=== PATIENT | male | born 1945 | race Caucasian/White ===

== ENCOUNTER 2016-09-29 12:31 | Inpatient (IN) | payer OTHER ==
--- NOTE | 2016-09-29 14:27 | EDPHY ---
H & P Time Seen by Provider: 09/29/16 14:09 HPI/ROS: CHIEF COMPLAINT: Left LE cellulitis HISTORY OF PRESENT ILLNESS: The patient is a 77-year-old male who presents to the emergency department with left lower extremity cellulitis. The patient initially noticed a small "pimple" on his left calf approximately 7 days ago. He tried to pop this pustule. Then developed significant redness. It is slowly macerated and created a central clearing. This is been draining of mild blood and pus. He has moderate discomfort. The redness is now moving up his calf. He denies fevers or chills. No nausea or vomiting. He went to urgent care was sent to the emergency department. REVIEW OF SYSTEMS: My complete review of systems is negative except as mentioned in the HPI. Past Medical/Surgical History: Denies Past surgical history: Orthopedic Social history: The patient does not smoke or use alcohol. Smoking Status: Never smoked Physical Exam: Vitals noted GENERAL: Well-appearing, in no acute distress, alert. HEENT: Eyes normal to inspection, normal pharynx, no signs of dehydration. NECK: No thyromegaly, no lymphadenopathy, supple. RESPIRATORY: Clear to auscultation bilaterally, no rales, rhonchi or wheezing. CVS: Regular rate and rhythm, no rubs, murmurs, or gallops. ABDOMEN: Soft, nontender, nondistended, no organomegaly. BACK: Normal to inspection, no CVA tenderness. SKIN: Normal color, no rash, warm, dry. No pallor. EXTREMITIES: No pedal edema, no joint swelling. The patient has significant erythema on the left calf. This extends the entire length of the calf. He also has mild swelling of his left foot. There is a centralized necrotic area that is 3 inches in diameter. There is no palpable fluctuance. The skin is fairly tender to palpation. Neurovascular intact distally NEURO/PSYCH: Alert and oriented x3, normal mood and affect, normal motor sensory exam. No obvious cranial nerve deficit. Constitutional: Initial Vital Signs Temperature (C) 36.4 C 09/29/16 12:51 Heart Rate 85 09/29/16 12:51 Respiratory Rate 16 09/29/16 12:51 Blood Pressure 134/85 H 09/29/16 12:51 O2 Sat (%) 97 09/29/16 12:51 O2 Delivery Mode Room Air Allergies/Adverse Reactions: phenytoin [From Dilantin] Allergy (Verified 09/29/16 12:56) Sulfa (Sulfonamide Antibiotics) Allergy (Verified 09/29/16 12:56) Medical Decision Making ED Course/Re-evaluation: In the emergency department I discussed possible etiologies with the patient. I answered all his questions. Bedside ultrasound performed. Procedure: Bedside ultrasound of the left lower extremity Indication: Cellulitis of the left lower extremity I performed a bedside ultrasound on the patient's lower extremity due to significant cellulitis and centralized macerated lesion. There is no visible large fluid collection. No visible FB. An IV was placed. Patient received vancomycin 1 g IV and Rocephin 1 g IV. I discussed case Dr. singh who will admit the patient. I also consulted Dr. Norton from General surgery. He will come and evaluate the wound. I discussed the plan with the patient. Answered all his questions. 15 10: Dr. Norton was in the emergency department evaluated the patient. Patient was stable during his stay. Differential Diagnosis: My differential includes but is not limited to cellulitis, abscess, bacteremia, sepsis, insect bite, spider bite - Data Points Medications Given: Discontinued Medications Ceftriaxone Sodium/Dextrose (Rocephin 1 Gm (Premix)) 50 mls @ 100 mls/hr IV EDNOW ONE PRN Reason: Protocol Stop: 09/29/16 15:14 Last Admin: 09/29/16 15:15 Dose: 50 mls Departure - Departure Disposition: [facility] Inpatient Acute Clinical Impression: Cellulitis Qualifiers: Site of cellulitis: extremity Site of cellulitis of extremity: lower extremity Laterality: left Qualified Code(s): L03.116 - Cellulitis of left lower limb Condition: Good
[2016-09-29] MEDS ORDERED: VANCOMYCIN HCL/NORMAL SALINE 250 ML IV ONE (14:45)
[2016-09-29 14:55] LABS: % IMMATURE GRANULYOCYTES 0.5 % (0.0-1.1); ABSOLUTE IMMATURE GRANULOCYTES 0.06 10^3/uL (0.00-0.10); ADD DIFF? NO; ADD MORPH? NO; ADD SCAN? NO; ATYPICAL LYMPHOCYTE FLAG 10 (0-99); FRAGMENT RBC FLAG 0 (0-99); HEMATOCRIT 48.5 % (40.0-51.0); LEFT SHIFT FLG 10 (0-99); LIPEMIA HEMOLYSIS FLAG 90 (0-99); MEAN CELL HEMOGLOBIN 32.1 pg (27.9-34.1); MEAN CELL HEMOGLOBIN CONCENTR. 35.1 g/dL (32.4-36.7); MEAN CELL VOLUME 91.7 fL (81.5-99.8); MEAN PLATELET VOLUME 9.2 fL (8.7-11.7); PLATELET CLUMPS FLAG 0 (0-99); PLATELET COUNT 234 10^3/uL (150-400); RED BLOOD CELL COUNT 5.29 10^6/uL (4.40-6.38); RED CELL DISTRIBUTION WIDTH 12.3 % (11.5-15.2)
[2016-09-29 15:14] LABS: ANION GAP 18 mEq/L (8-16); CALCIUM 9.6 mg/dL (8.5-10.4); CARBON DIOXIDE 20 mEq/l (22-31); CHLORIDE 102 mEq/L (97-110); GLOMERULAR FILTRATION RATE > 60; GLUCOSE 90 mg/dL (70-100); POTASSIUM 4.2 mEq/L (3.5-5.2); SODIUM 140 mEq/L (134-144)
[2016-09-29] MEDS ORDERED: ONDANSETRON DISINTEGRATING 4 MG TAB PO PRN (16:02)
[2016-09-29] MEDS ORDERED: ACETAMINOPHEN 325 MG TAB PO PRN (16:02)
[2016-09-29] MEDS ORDERED: ONDANSETRON 4 MG/2 ML VIAL IVP PRN (16:02)
[2016-09-29] MEDS ORDERED: oxyCODONE IR 5 MG TAB PO PRN (16:02)
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
[2016-09-29] MEDS: VANCOMYCIN HCL/NORMAL SALINE 250 ML IV SCH ×2 (16:26→16:27)
--- NOTE | 2016-09-29 16:37 | GHP ---
[f rep st] HISTORY AND PHYSICAL DATE OF ADMISSION: 09/29/2016 CHIEF COMPLAINT: Leg pain. HISTORY OF PRESENT ILLNESS: This is a 71-year-old man with no past medical history who presents wit h a swollen left leg. About a week ago, he noticed a "pimple" on his left calf. He picked at it. Since then, an area of redness has been very slowly growing. He presents today because the area is now taking up most of his calf, and he has a swollen left foot. He has had a borderline fever, whic h started last night. He has no history of severe infections and no history of resistant bacteria i n the past. PAST MEDICAL HISTORY: No past medical history. PAST SURGICAL HISTORY: He has had orthopedic surgery in the past. MEDICATIONS: None. ALLERGIES: Phenytoin and sulfa. FAMILY HISTORY: He is adopted. SOCIAL HISTORY: He does drink alcohol. He does not smoke. He is retired. Last job was about 8 ye ars ago. 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 REVIEW OF SYSTEMS: 10-point review of systems was conducted and is negative except per HPI. PHYSICAL EXAM: VITAL SIGNS: Blood pressure 143/91, heart rate 66, respiratory rate 18, satting 97% on room air, temperature 36.4. GENERAL: The patient is a pleasant man who appears comfortable, in no acute distress. HEENT: Normocephalic, atraumatic. CARDIOVASCULAR: Regular rate and rhythm. No murmurs, rubs, or gallops. PULMONARY: Lungs clear to auscultation bilaterally. ABDOMEN: Soft, nontender, nondistended. SKIN: No rash. : No Mott. NEUROLOGIC: Exam shows him to be alert and oriented x3. He is moving all extremities. PSYCHIATRIC: Normal mood and affect. EXTREMITIES: Exam shows his left lower extremity to have erythema which extends from just below his knee to jus t above his ankle. He has an area of induration, approximately 4-5 cm across the area of erythema. It is warm, slightly tender to palpation. His left foot is swollen. He has no inguinal lymphadeno sourav. He does have sensation and motor intact in his left foot. LABORATORY DATA: Bicarb is 20. White blood cell count is 12,000 with 76% neutrophils. There are n o bands reported. DATA: I discussed this with Dr. Caal as well as Dr. Norton. We will admit to med/surg for IV an tibiotics. IMPRESSION AND PLAN: A 71-year-old man with left lower extremity cellulitis. 1. Cellulitis: Quite extensive. Not associated with sepsis. Agree I do not think there is any ro le for surgical debridement at this time, although there is a large area of induration which we will have to watch. Agree with covering for gram-positives. At this point, I will start him on vancomy khoa. Cultures of the top of the wound as well as blood have been sent. We are not sure how reliabl e wound cultures will be. He will get empirically covered with vancomycin for now. Dr. Norton will follow along peripherally. This is a high-risk diagnosis requiring inpatient IV antibiotics. 2. Leukocytosis: Due to the above. We will follow tomorrow. 3. Anion gap acidosis: Likely due to elevated BUN. We will recheck a basic metabolic panel again tomorrow. 4. VTE risk: He is moderate to high given the significance of his swelling. I have started him on low-dose Lovenox. /[id number]/MODL
[2016-09-29] MEDS: BEER 1 EACH EA PO SCH (18:49)
--- NOTE | 2016-09-29 22:49 | SOAPPROG ---
SOAP Progress Note Assessment/Plan: 09/29/16 22:45 Assessment: erythema has retreated by > 2-3 cm from line drawn this afternoon. Edema decreased Improved!! Plan: antibiotics elevation compressive dressing Pushing SATs to 98% Subjective: I feel better Objective: Vital Signs Temp Pulse Resp BP Pulse Ox 36.7 C 69 18 129/73 H 97 09/29/16 19:20 09/29/16 19:20 09/29/16 19:20 09/29/16 19:20 09/29/16 19:20 Microbiology 09/29/16 15:10 Gram Stain - Final Leg - Anaerobic Tube/Swab Laboratory Results 09/29/16 14:35 09/29/16 14:35 09/28/16 09/29/16 09/30/16 05:59 05:59 05:59 Intake Total 950 Balance 950 - Time Spent With Patient Time Spent With Patient: 15 minutes Physical Exam - Physical Exam General Appearance: alert, no apparent distress Skin: other (Erythema around wound has retreated 2-3 cm. Edema decreased) ICD10 Worksheet Patient Problems: Problems Problem Status Onset Cellulitis Acute
[2016-09-30] MEDS: VANCOMYCIN HCL/NORMAL SALINE 250 ML IV SCH ×2 (04:18→15:39)
[2016-09-30 04:48] LABS: % IMMATURE GRANULYOCYTES 0.2 % (0.0-1.1); ABSOLUTE IMMATURE GRANULOCYTES 0.02 10^3/uL (0.00-0.10); ADD DIFF? NO; ADD MORPH? NO; ADD SCAN? NO; ATYPICAL LYMPHOCYTE FLAG 20 (0-99); FRAGMENT RBC FLAG 0 (0-99); HEMATOCRIT 42.7 % (40.0-51.0); LEFT SHIFT FLG 10 (0-99); LIPEMIA HEMOLYSIS FLAG 90 (0-99); MEAN CELL HEMOGLOBIN 32.1 pg (27.9-34.1); MEAN CELL HEMOGLOBIN CONCENTR. 35.1 g/dL (32.4-36.7); MEAN CELL VOLUME 91.4 fL (81.5-99.8); MEAN PLATELET VOLUME 8.9 fL (8.7-11.7); PLATELET CLUMPS FLAG 0 (0-99); PLATELET COUNT 206 10^3/uL (150-400); RED BLOOD CELL COUNT 4.67 10^6/uL (4.40-6.38); RED CELL DISTRIBUTION WIDTH 12.2 % (11.5-15.2)
[2016-09-30 04:55] LABS: ANION GAP 12 mEq/L (8-16); CALCIUM 9.1 mg/dL (8.5-10.4); CARBON DIOXIDE 21 mEq/l (22-31); CHLORIDE 108 mEq/L (97-110); CREATININE 0.9 mg/dL (0.7-1.3); GLOMERULAR FILTRATION RATE > 60; GLUCOSE 96 mg/dL (70-100); POTASSIUM 4.8 mEq/L (3.5-5.2); SODIUM 141 mEq/L (134-144)
[2016-09-30] MEDS: ENOXAPARIN 40 MG/0.4 ML SYR SC SCH (08:07)
--- NOTE | 2016-09-30 09:06 | SOAPPROG ---
SOAP Progress Note Assessment/Plan: 09/29/16 22:45 Assessment: erythema has retreated by > 2-3 cm from line drawn this afternoon. Edema decreased Improved!! Plan: antibiotics elevation compressive dressing Pushing SATs to 98% 09/30/16 08:55 Assessment: Continues to improve. Erythema continues to retreat ( edge re-marked ). Edema less. WBC improved C&S still pending - gram pos cocci in pairs. Plan: Continue same. Surgical intervention probably will not be needed. Recommend antibiotics based on sensitivities and close outpatient follow up Suggest continued elevation of leg and local heat until edema and erythema resolves. Will sign off. Please reconsult if needed. Subjective: " I feel great and really want to go to the [employer] [facility] Objective: Vital Signs Temp Pulse Resp BP Pulse Ox 36.6 C 70 16 130/69 H 95 09/30/16 08:36 09/30/16 08:36 09/30/16 08:36 09/30/16 08:36 09/30/16 08:36 Laboratory Results 09/30/16 04:28 09/30/16 04:28 09/29/16 09/30/16 10/01/16 05:59 05:59 05:59 Intake Total 600 Balance 600 - Time Spent With Patient Time Spent With Patient: 15 minutes Physical Exam - Physical Exam General Appearance: WD/WN, alert, no apparent distress Skin: other (Area of erythema on left lower medial leg continues to resolve. edge remarked. Edema markedly decreased.) Neuro/Psych: alert, normal mood/affect, oriented x 3 ICD10 Worksheet Patient Problems: Problems Problem Status Onset Cellulitis Acute
--- NOTE | 2016-09-30 11:05 | HOSPPROG ---
Hospitalist Progress Note Assessment/Plan: # LLE cellulitis - does not appear surgical - GS with GPC clusters - follow wound cx - cont vanc pending sensitivity - elevate leg # ppx - lovenox Subjective: swelling down today; no diarrhea Objective: Vital Signs Temp Pulse Resp BP Pulse Ox 36.6 C 70 16 130/69 H 95 09/30/16 08:36 09/30/16 08:36 09/30/16 08:36 09/30/16 08:36 09/30/16 08:36 Laboratory Results 09/30/16 04:28 09/30/16 04:28 09/29/16 09/30/16 10/01/16 05:59 05:59 05:59 Intake Total 600 Balance 600 - Physical Exam Constitutional: no apparent distress, appears nourished Cardiovascular: regular rate and rhythym, no murmur, rub, or gallop Respiratory: no respiratory distress, no rales or rhonchi, clear to auscultation Gastrointestinal: normoactive bowel sounds, soft, non-tender abdomen, no palpable masses Musculoskeletal: other (L leg with decreaing erythema/edema) ICD10 Worksheet Patient Problems: Problems Problem Status Onset Cellulitis Acute
[2016-09-30] MEDS: BEER 1 EACH EA PO SCH (17:41)
[2016-10-01] MEDS: VANCOMYCIN HCL/NORMAL SALINE 250 ML IV SCH ×2 (04:21→16:21)
[2016-10-01 04:50] LABS: ANION GAP 13 mEq/L (8-16); CARBON DIOXIDE 21 mEq/l (22-31); CHLORIDE 107 mEq/L (97-110); GLUCOSE 97 mg/dL (70-100); POTASSIUM 5.2 mEq/L (3.5-5.2); SODIUM 141 mEq/L (134-144)
[2016-10-01 04:51] LABS: CALCIUM 9.3 mg/dL (8.5-10.4); GLOMERULAR FILTRATION RATE > 60
--- NOTE | 2016-10-01 08:59 | HOSPPROG ---
Hospitalist Progress Note Assessment/Plan: #MRSA leg cellulitis: redness improved from marked outlines. Still purulence from wound -will cont IV vanc. Appreciate ID consultation #Leukocytosis: resolved with IV abx #Metabolic acidosis: resolved #Diet: regular #DVT: Lovenox #Disp: cont IV abx Subjective: less tender over leg Objective: Vital Signs Temp Pulse Resp BP Pulse Ox 36.7 C 67 16 140/75 H 98 10/01/16 08:38 10/01/16 08:38 10/01/16 08:38 10/01/16 08:38 10/01/16 08:38 Laboratory Results 09/30/16 04:28 10/01/16 03:01 09/30/16 10/01/16 10/02/16 05:59 05:59 05:59 Intake Total 600 1500 Balance 600 1500 - Physical Exam Constitutional: no apparent distress Eyes: PERRL Ears, Nose, Mouth, Throat: moist mucous membranes, hearing normal Cardiovascular: regular rate and rhythym, no murmur, rub, or gallop Respiratory: no respiratory distress, no rales or rhonchi Gastrointestinal: normoactive bowel sounds, soft, non-tender abdomen Genitourinary: no bladder fullness Skin: warm Musculoskeletal: other (left calf. Erythema receded from previously marked outline. 4-5inch wound with mild purulence and surrounding erythema) Neurologic: AAOx3, CN II-XII Intact Psychiatric: interacting appropriately Lymph, Heme, Immunologic: no cervical LAD ICD10 Worksheet Patient Problems: Problems Problem Status Onset Cellulitis Acute MRSA (methicillin resistant Staphylococcus aureus) Acute ~09/29/16
[2016-10-01] MEDS: ENOXAPARIN 40 MG/0.4 ML SYR SC SCH (11:10)
--- NOTE | 2016-10-01 17:55 | GCON ---
[f rep st] CONSULTATION DATE OF CONSULTATION: 10/01/2016 REFERRING PHYSICIAN: Bessie Ni MD REASON FOR CONSULTATION: Left lower extremity cellulitis due to MRSA. HISTORY OF PRESENT ILLNESS: Patient is a 71-year-old male without significant past medical history, whom I am asked to see in consultation for left lower extremity cellulitis associated with MRSA. T he patient describes developing a pimple-like lesion over the left lower calf approximately 10 days ago. He squeezed this and subsequently applied Betadine. He also was using tea tree soap. Subsequ ently, he experienced erythema, edema, and tenderness of the calf. He describes having subjective f ever without chills for a short period. No prior history of MRSA or skin and soft tissue infection. The patient was evaluated in the emergency department and noted to have a carbuncle of the left lo wer extremity, which was cultured and has grown MRSA. The patient has been receiving antibiotic the rapy with vancomycin. He has been elevating his leg and has had superficial debridement of the resi dual ulceration. He did not require formal incision and drainage. He notes the erythema has recede d and his pain is significantly decreased. He has not experienced any pain in his thigh or inguinal region. Given the above findings, I am now asked to assist in his ongoing management. PAST MEDICAL HISTORY: Unremarkable. PAST SURGICAL HISTORY: Orbital fracture and knee surgery. CURRENT MEDICATIONS: Vancomycin 1 g IV q.12 hours, Lovenox 40 mg subcu daily, Oxy IR as needed, 1 b eer daily. ALLERGIES: Dilantin and sulfonamides are listed in his chart, although he related no allergies to m e today. SOCIAL HISTORY: Patient does not smoke. He drinks 5-6 drinks per week. No drug use. No recent tr cheyanne. No pets at home. FAMILY HISTORY: Patient is adopted. REVIEW OF SYSTEMS: Outside of that noted in HPI, remainder of 10-system review is unremarkable. PHYSICAL EXAMINATION: VITAL SIGNS: Temperature 36.7, heart rate 67, respiratory rate 16, blood pre ssure 140/75, oxygen saturation 98% on 3 L. GENERAL: Patient is well nourished, well developed in no acute distress. He appears nontoxic. HEENT: There is no scleral icterus, conjunctival injectio n, or conjunctival petechiae. Oropharynx shows moist mucous membranes with no thrush. Several teet h are missing. There is no nasal discharge. There is no tenderness over the frontal, maxillary or mastoid area. NECK: Supple without lymphadenopathy or palpable thyromegaly. CHEST: Clear to ausc ultation bilaterally without adventitious sounds. Respiratory effort is normal. CARDIOVASCULAR: R egular rate and rhythm without murmurs, gallops, rubs. ABDOMEN: Soft, nontender, nondistended. Th ere is no palpable organomegaly. Bowel sounds are present. MUSCULOSKELETAL: Left lower extremity shows erythema from superior to the medial malleolus to below the knee; there is a central area of u lceration with underlying granulation tissue present. There is mild induration present. Skin is wr inkling suggesting decreasing edema. There is mild warmth and tenderness. LYMPHATICS: No cervical or supraclavicular nodes. No left inguinal adenopathy or lymphangitis. NEUROLOGIC: Patient is al ert and interacts appropriately with examiner. Cranial nerves 2-12 are grossly intact. Muscle tone and bulk are normal. LABORATORY DATA: White blood cell count 9.2, hematocrit 42.7, platelets 206, neutrophils 68%, lymph ocytes 19%. Serum creatinine 1.0. Vancomycin trough 9.5. Blood cultures x2 are no growth. Wound culture showing growth of MRSA. IMPRESSION: Left lower extremity skin and soft tissue infection due to Methicillin-resistant Staphy lococcus aureus. The patient is clinically improved with vancomycin therapy and superficial debride ment of ulceration. He is not ready to transition to oral antibiotic therapy, although this may be achievable in next 24-48 hours. RECOMMENDATIONS: 1. Continue vancomycin (trough appropriate for skin and soft tissue infection). 2. Continue leg elevation. 3. Follow clinical response to above measures. 4. Epidemiology and transmission of Methicillin-resistant Staphylococcus aureus discussed with aretha ent today. Thank you for this consultation. We will continue to follow the patient with you. /[id number]/MODL
[2016-10-01] MEDS: BEER 1 EACH EA PO SCH (18:10)
[2016-10-02] MEDS: VANCOMYCIN HCL/NORMAL SALINE 250 ML IV SCH ×2 (04:25→16:19)
[2016-10-02 06:03] LABS: ANION GAP 9 mEq/L (8-16); CALCIUM 9.3 mg/dL (8.5-10.4); CARBON DIOXIDE 23 mEq/l (22-31); CHLORIDE 106 mEq/L (97-110); CREATININE 0.9 mg/dL (0.7-1.3); GLOMERULAR FILTRATION RATE > 60; GLUCOSE 91 mg/dL (70-100); POTASSIUM 4.6 mEq/L (3.5-5.2); SODIUM 138 mEq/L (134-144)
[2016-10-02 08:19] VITALS: RESP 18
[2016-10-02] MEDS: ENOXAPARIN 40 MG/0.4 ML SYR SC SCH (10:05)
--- NOTE | 2016-10-02 13:46 | PCMIDPN ---
Assessment/Plan: Assessment/Plan: * Left lower extremity cellulitis due to MRSA: Exam with more fluctuant quality underlying ulceration and some bloody and purulent material expressed in small amount. Will repeat ultrasound to assess for development of fluid collection with aspiration if present. Depending on findings, could require that this area be incised and drained. Continue vancomycin and leg elevation. 10/02/16 13:42 Subjective: Overall feels better with focal area pain over left lower extremity wound. Objective: Vital Signs Temp Pulse Resp BP Pulse Ox 36.5 C 63 18 133/78 H 94 10/02/16 08:19 10/02/16 08:19 10/02/16 08:19 10/02/16 08:19 10/02/16 08:19 Laboratory Results 09/30/16 04:28 10/02/16 05:12 10/01/16 10/02/16 10/03/16 05:59 05:59 05:59 Intake Total 1500 480 Balance 1500 480 Vancomycin # 4 Blood cultures no growth - Physical Exam General Appearance: alert, no apparent distress Extremities: inflammation (Erythema markedly reduced; fluctuant quality to ulceration bed with some seropurulent and purulent material expressed in small quantity; tenderness primarily over this region) Lymphatic: other (No lymphangitis left lower extremity) ICD10 Worksheet Patient Problems: Problems Problem Status Onset Cellulitis Acute MRSA (methicillin resistant Staphylococcus aureus) Acute ~09/29/16
--- NOTE | 2016-10-02 14:43 | HOSPPROG ---
Hospitalist Progress Note Assessment/Plan: #MRSA leg cellulitis: not much improvement of wound and surrounding erythema. CT leg today per discussion with Dr. Artis and Dr. Norton. -cont IV vanc, elevate #Leukocytosis: resolved with IV abx #Metabolic acidosis: resolved #Diet: regular #DVT: Lovenox #Disp: cont IV abx Subjective: minimal pain over left lower leg and wound site Objective: Vital Signs Temp Pulse Resp BP Pulse Ox 36.5 C 63 18 133/78 H 94 10/02/16 08:19 10/02/16 08:19 10/02/16 08:19 10/02/16 08:19 10/02/16 08:19 Laboratory Results 09/30/16 04:28 10/02/16 05:12 10/01/16 10/02/16 10/03/16 05:59 05:59 05:59 Intake Total 1500 480 Balance 1500 480 - Physical Exam Constitutional: no apparent distress Eyes: PERRL Ears, Nose, Mouth, Throat: moist mucous membranes, hearing normal Cardiovascular: regular rate and rhythym, no murmur, rub, or gallop Respiratory: no respiratory distress Gastrointestinal: normoactive bowel sounds Genitourinary: no bladder fullness Musculoskeletal: other (left calf wound unchanged. Still purulence with surrounding erythema, mild fluctuance and TTP) Neurologic: AAOx3 Psychiatric: interacting appropriately Lymph, Heme, Immunologic: no cervical LAD ICD10 Worksheet Patient Problems: Problems Problem Status Onset Cellulitis Acute MRSA (methicillin resistant Staphylococcus aureus) Acute ~09/29/16
[2016-10-02] MEDS ORDERED: IOPAMIDOL (ISOVUE-300) 100 ML BTL ONE (14:44)
[2016-10-02] MEDS: BEER 1 EACH EA PO SCH (17:52)
[2016-10-03] MEDS: VANCOMYCIN HCL/NORMAL SALINE 250 ML IV SCH (03:05)
[2016-10-03 06:00] LABS: ANION GAP 11 mEq/L (8-16); CALCIUM 9.5 mg/dL (8.5-10.4); CARBON DIOXIDE 20 mEq/l (22-31); CHLORIDE 110 mEq/L (97-110); CREATININE 1.1 mg/dL (0.7-1.3); GLOMERULAR FILTRATION RATE > 60; GLUCOSE 90 mg/dL (70-100); POTASSIUM 5.2 mEq/L (3.5-5.2); SODIUM 141 mEq/L (134-144)
[2016-10-03 07:54] VITALS: BP 128/79; PULSE 55; TEMP 97.5; O2SAT 94
[2016-10-03] MEDS: ENOXAPARIN 40 MG/0.4 ML SYR SC SCH (09:45)
--- NOTE | 2016-10-03 11:01 | PCMIDPN ---
Assessment/Plan: Assessment/Plan: * Left lower extremity cellulitis due to MRSA: Marked improvement today. No drainable focus on CT. Plan to complete therapy with doxycycline 100 mg po bid X 7 days. Follow-up with me next week 10/06/16 at 1 pm. 10/02/16 13:42 10/03/16 10:57 Subjective: Feels much better after manipulation of ulcer bed yesterday. Objective: Vital Signs Temp Pulse Resp BP Pulse Ox 36.4 C 55 L 18 128/79 H 94 10/03/16 07:53 10/03/16 07:53 10/03/16 07:53 10/03/16 07:53 10/03/16 07:53 Laboratory Results 09/30/16 04:28 10/03/16 05:34 10/02/16 10/03/16 10/04/16 05:59 05:59 05:59 Intake Total 480 1950 Balance 480 1950 Vancomycin #5 CT lower extremity without drainable focus - Physical Exam General Appearance: alert, no apparent distress EENT: No scleral icterus Extremities: inflammation (marked decrease in edema, erythema and tenderness; ulcer bed without purulent drainage; small amount of bloody drainage) ICD10 Worksheet Patient Problems: Problems Problem Status Onset Cellulitis Acute MRSA (methicillin resistant Staphylococcus aureus) Acute ~09/29/16
--- NOTE | 2016-10-03 11:51 | HOSPPROG ---
Hospitalist Progress Note Assessment/Plan: #MRSA leg cellulitis: not much improvement of wound and surrounding erythema. CT leg today per discussion with Dr. Artis and Dr. Norton. -cont IV vanc, elevate #Leukocytosis: resolved with IV abx #Metabolic acidosis: resolved #Diet: regular #DVT: Lovenox #Disp: DC on oral abx. FU Dr. Artis Wed Subjective: no acute events Objective: Vital Signs Temp Pulse Resp BP Pulse Ox 36.4 C 55 L 18 128/79 H 94 10/03/16 07:53 10/03/16 07:53 10/03/16 07:53 10/03/16 07:53 10/03/16 07:53 Laboratory Results 09/30/16 04:28 10/03/16 05:34 10/02/16 10/03/16 10/04/16 05:59 05:59 05:59 Intake Total 480 1950 Balance 480 1950 - Physical Exam Constitutional: no apparent distress Eyes: PERRL Ears, Nose, Mouth, Throat: moist mucous membranes Cardiovascular: regular rate and rhythym Respiratory: no respiratory distress Gastrointestinal: normoactive bowel sounds Genitourinary: no bladder fullness Skin: warm Musculoskeletal: other (leg wound with improved cellulitis. No purulence) Neurologic: AAOx3 Psychiatric: interacting appropriately ICD10 Worksheet Patient Problems: Problems Problem Status Onset Cellulitis Acute MRSA (methicillin resistant Staphylococcus aureus) Acute ~09/29/16
--- NOTE | 2016-10-03 12:25 | GDS ---
[f rep st] DISCHARGE SUMMARY DISCHARGE DIAGNOSES: 1. Purulent methicillin-resistant Staphylococcus aureus left lower extremity cellulitis. 2. Leukocytosis. 3. Anion gap acidosis. HISTORY: Patient is a 71-year-old male with no past medical history, presents with a swollen left leg. About a week ago, he noticed a pimple on his left calf and picked it. Since that time, the area has become more red and had spread up to his calf by the time of presentation. He has had a mild fever which started the day prior. HOSPITAL COURSE BY PROBLEM: 1. MRSA left lower extremity cellulitis: Improved on IV vancomycin. CT did not identify a drainable abscess. Transitioned to p.o. doxycycline for 7 days, to follow up with Dr. Artis this week. 2. Leukocytosis secondary to cellulitis, resolved with antibiotics. 3. Anion gap acidosis, likely secondary to dehydration. This too resolved with fluids. DISPOSITION: Patient is stable for discharge. MEDICATIONS: Doxycycline 100 mg twice daily 2 times a day. FOLLOW UP: Followup with Dr. Frederick Artis on Tuesday, 10/06. /[id number]/MODL MTDD
== END 2016-10-03 13:50 | disposition home or self-care (01) | DRG 603 ==
LOC: F1N 15:26 → OBSVTOIN 16:03
PROVIDERS: ADMIT Student in an Organized Health Care Education/Training Program; ATTEND Student in an Organized Health Care Education/Training Program
DX: L03.116 Cellulitis of left lower limb (principal); E87.2 Acidosis; B95.62 Methicillin resistant Staphylococcus aureus infection as the cause of diseases classified elsewhere; L02.436 Carbuncle of left lower limb
CPT/HCPCS: 96365; J0696; J1650; J3370; Q9967